=== PATIENT | male | born 1980 | race Caucasian/White ===

== ENCOUNTER → 2017-05-21 | Outpatient (CLI) | payer OTHER ==
[~2017-05-21] MED LIST: CTP1 PO; CTP3 PO; DXY100 PO; EFF50 PO; NAPR-1169 PO; PARO10TA PO
[2017-05-21 14:49] LABS: INFLUENZA B ANTIGEN Neg for Influ B (NEG)
== END ==
LOC: C.LABSPEC 11:17
PROVIDERS: ATTEND Physician Assistant Medical
DX: J06.9 Acute upper respiratory infection, unspecified (principal)

== ENCOUNTER 2017-07-05 01:20 | Emergency (ER) | payer OTHER ==
[~2017-07-05] VITALS: Ht 180.3 cm; Wt 102.0 kg
[2017-07-05 01:22] VITALS: Ht 180.3 cm; Wt 102.0 kg
[2017-07-05] MEDS ORDERED: SODIUM CHLORIDE 0.9% 1000ML 1,000 ML IV STA (01:26)
[2017-07-05] MEDS ORDERED: KETOROLAC TROMETHAMINE 30 MG/ML VIAL IV STA (01:26)
[2017-07-05] MEDS ORDERED: ONDANSETRON INJ 2 MG/ML 2 ML VIAL IV STA (01:26)
[2017-07-05] MEDS: MoRPHine SULFATE 4 MG/ML 1 ML CARP\\VIAL IV PRN ×3 (01:34→02:26)
[2017-07-05 01:43] LABS: BASO % 0.2 %; BASO ABS # 0.02 K/uL (0-0.2); EOS ABS # 0.18 K/uL (0-0.5); HEMATOCRIT 46.4 % (42-52); IG# 0.02 K/uL (0.00-0.02); LYMPH % 28.8 %; MEAN CELL VOLUME 89.1 fL (80-100); MEAN CORPUSCULAR HEMOGLOBIN 30.7 pg (25-34); MEAN CORPUSCULAR HGB CONC 34.5 g/dl (32-36); MEAN PLATELET VOLUME 9.1 fL (7.4-10.4); MONO % 8.4 %; MONO ABS # 0.76 K/uL (0.11-0.59); NEUT % 60.4 %; NEUT ABS # 5.44 K/uL (1.4-6.5); PLATELET COUNT 289 K/uL (130-400); RED CELL DISTRIBUTION WIDTH CV 12.6 % (11.5-14.5); RED CELL DISTRIBUTION WIDTH SD 40.9 fL (36.4-46.3); WHITE BLOOD COUNT 9.02 K/uL (4.8-10.8)
[2017-07-05] MEDS ORDERED: RANI150T81 PO (01:49)
[2017-07-05] MEDS ORDERED: BUPR100T5 PO (01:49)
[2017-07-05] MEDS ORDERED: DIPH25CA5 PO (01:49)
[2017-07-05] MEDS ORDERED: CTP/1 PO (01:49)
[2017-07-05] MEDS ORDERED: SERT50TA PO (01:49)
[2017-07-05] MEDS ORDERED: DIPH50TA10 PO (01:53)
[2017-07-05 02:04] LABS: ALBUMIN 3.9 gm/dl (3.4-5.0); CALCIUM 9.2 mg/dl (8.5-10.1); CREATININE 1.16 mg/dl (0.60-1.40); POTASSIUM 3.6 mmol/L (3.5-5.1)
[2017-07-05] MEDS ORDERED: OXYCODONE IR HOME PACK PO ONE (02:15)
[2017-07-05] MEDS ORDERED: ONDANSETRON HOME PACK 4MG OD TAB PO ONE (02:15)
--- NOTE | 2017-07-05 02:20 | EMERGENCY ROOM VISIT NOTE ---
History Report prepared by Angela: Lynda Marley Under the Supervision of: Dr. Cuba Becerra D.O. First contact with patient: 01:24 Chief Complaint: ABDOMINAL PAIN Stated Complaint: ABD PAIN History of Present Illness The patient is a 36 year old male who presents to the Emergency Room with complaints of persistent right flank pain starting around 0 today. The pain wraps around to his right lower abdomen. The pain started suddenly. He has never had this pain before. He has not noticed any hematuria. He denies any chest pain or testicular pain. He denies any alcohol use or smoking. He has had a cholecystectomy and appendectomy. He denies any history of kidney stone. Source of History: patient Onset: 2229 Position: other (right flank) Symptom Intensity: 910 Quality: other (pain) Timing: other (persistent) Associated Symptoms: No chest pain, No urinary symptoms Review of Systems See HPI for pertinent positives & negatives. A total of 10 systems reviewed and were otherwise negative. Past Medical & Surgical Surgical Problems: (1) S/P appendectomy (2) S/P cholecystectomy Family History No pertinent family history stated. Social History Smoking Status: Never Smoker Alcohol Use: none Housing Status: other (skilled nursing) Current/Historical Medications Scheduled Bupropion Hcl (Wellbutrin Sr), 100 MG PO QAM Clonidine Hcl (Catapres), 0.2 MG PO QPM Diphenhydramine Hcl (Benadryl), 25 MG PO QPM Diphenhydramine Hcl (Sleep) (Diphenhydramine Hcl), 50 MG PO QPM Ranitidine HCl (Zantac), 150 MG PO BID Sertraline (Zoloft), 50 MG PO QAM Allergies Coded Allergies: Butorphanol (Verified Allergy, Severe, HIVES, 07/05/17) Ketorolac Tromethamine (Verified Allergy, Severe, HIVES, 07/05/17) Metoclopramide (Verified Allergy, Intermediate, INCREASED ANXIETY, 07/05/17 ) Physical Exam Vital Signs Date Time Temp Pulse Resp B/P (MAP) Pulse Ox O2 Delivery O2 Flow Rate FiO2 07/05/17 02:27 36.7 85 22 132/90 96 07/05/17 02:06 85 22 132/90 96 Room Air 07/05/17 01:22 36.7 104 26 163/90 98 Room Air Physical Exam GENERAL: Patient is awake, alert, very anxious appearing, appears to be in significant pain. EYES: The conjunctivae are clear. The pupils are round and reactive. EARS, NOSE, MOUTH AND THROAT: The nose is without any evidence of any deformity. Mucous membranes are moist tongue is midline NECK: The neck is nontender and supple. RESPIRATORY: Normal respiratory effort is noted there is no evidence of wheezing rhonchi or rales CARDIOVASCULAR: Regular rate and rhythm noted there no murmurs rubs or gallops normal S1 normal S2 GASTROINTESTINAL: The abdomen is mildly distended, but soft. No guarding or rigidity was appreciated. BACK: Right CVA tenderness. MUSCULOSKELETAL/EXTREMITIES: There is no evidence of gross deformity full range of motion is noted in the hips and shoulders SKIN: There is no obvious evidence of any rash. There are no petechiae, pallor or cyanosis noted. NEUROLOGIC: Patient is awake alert and oriented x3 Medical Decision & Procedures ER Provider Diagnostic Interpretation: Radiology results as stated below per my review and [facility] radiologist interpretation: CT Abdomen & Pelvis without contrast: Punctate stones in the right UVJ causing mild right hydroureter. Laboratory Results 07/05/17 01:25 Red Blood Count 5.21, Mean Corpuscular Volume 89.1, Mean Corpuscular Hemoglobin 30.7, Mean Corpuscular Hemoglobin Concent 34.5, Mean Platelet Volume 9.1, Neutrophils (%) (Auto) 60.4, Lymphocytes (%) (Auto) 28.8, Monocytes (%) (Auto) 8.4, Eosinophils (%) (Auto) 2.0, Basophils (%) (Auto) 0.2, Neutrophils # (Auto) 5.44, Lymphocytes # (Auto) 2.60, Monocytes # (Auto) 0.76, Eosinophils # (Auto) 0.18, Basophils # (Auto) 0.02 07/05/17 01:25 Test 07/05/17 01:25 White Blood Count 9.02 K/uL (4.8-10.8) Red Blood Count 5.21 M/uL (4.7-6.1) Hemoglobin 16.0 g/dL (14.0-18.0) Hematocrit 46.4 % (42-52) Mean Corpuscular Volume 89.1 fL (80-100) Mean Corpuscular Hemoglobin 30.7 pg (25-34) Mean Corpuscular Hemoglobin Concent 34.5 g/dl (32-36) Platelet Count 289 K/uL (130-400) Mean Platelet Volume 9.1 fL (7.4-10.4) Neutrophils (%) (Auto) 60.4 % Lymphocytes (%) (Auto) 28.8 % Monocytes (%) (Auto) 8.4 % Eosinophils (%) (Auto) 2.0 % Basophils (%) (Auto) 0.2 % Neutrophils # (Auto) 5.44 K/uL (1.4-6.5) Lymphocytes # (Auto) 2.60 K/uL (1.2-3.4) Monocytes # (Auto) 0.76 K/uL (0.11-0.59) Eosinophils # (Auto) 0.18 K/uL (0-0.5) Basophils # (Auto) 0.02 K/uL (0-0.2) RDW Standard Deviation 40.9 fL (36.4-46.3) RDW Coefficient of Variation 12.6 % (11.5-14.5) Immature Granulocyte % (Auto) 0.2 % Immature Granulocyte # (Auto) 0.02 K/uL (0.00-0.02) Anion Gap 8.0 mmol/L (3-11) Est Creatinine Clear Calc Drug Dose 109.1 ml/min Estimated GFR () 94.7 Estimated GFR (Non- 81.7 BUN/Creatinine Ratio 8.7 (10-20) Calcium Level 9.2 mg/dl (8.5-10.1) Total Bilirubin 0.6 mg/dl (0.2-1) Direct Bilirubin 0.2 mg/dl (0-0.2) Aspartate Amino Transf (AST/SGOT) 23 U/L (15-37) Alanine Aminotransferase (ALT/SGPT) 49 U/L (12-78) Alkaline Phosphatase 85 U/L (45-117) Total Protein 8.0 gm/dl (6.4-8.2) Albumin 3.9 gm/dl (3.4-5.0) Lipase 206 U/L (73-393) Laboratory results per my review. Medications Administered Medications (Trade) Dose Ordered Sig/Tita Route Start Time Stop Time Status Last Admin Dose Admin Sodium Chloride 1,000 ml @ 999 mls/hr Q1H1M STAT IV 07/05/17 01:26 07/05/17 02:26 DC 07/05/17 01:38 999 MLS/HR Ondansetron HCl (Zofran Inj) 4 mg NOW STAT IV 07/05/17 01:26 07/05/17 01:27 DC 07/05/17 01:34 4 MG Morphine Sulfate (MoRPHine SULFATE INJ) 4 mg Q15M PRN IV 07/05/17 01:30 07/19/17 01:29 07/05/17 02:26 4 MG Oxycodone HCl (Roxicodone Immediate Rel 5MG Home Pack) 1 homepack UD ONCE PO 07/05/17 02:15 07/05/17 02:16 DC 07/05/17 02:15 1 HOMEPACK Ondansetron HCl (ZOFRAN ODT 4MG Home Pack) 1 homepack UD ONCE PO 07/05/17 02:15 07/05/17 02:16 DC 07/05/17 02:15 1 HOMEPACK ED Course 0125: The patient was evaluated in room B7. A complete history and physical examination were performed. 0126: Zofran Inj 4 mg IV, NSS 1000 ml @ 999 mls/hr IV. 0130: Morphine Sulfate 4 mg IV. 0214: Upon reevaluation, the patient is resting comfortably. I discussed the results and treatment plan with him. He verbalized agreement of the treatment plan. He was discharged home. 0215: Zofran Odt 4 mg 1 homepack, Oxycodone HCl 1 homepack. Medical Decision Prior records/ancillary studies reviewed. Triage Nursing notes reviewed. Differential diagnosis: Etiologies such as renal colic, appendicitis, diverticulitis, mesenteric ischemia, aortic pathology, infections, inflammatory bowel disease, PUD, biliary pathology, UTI, as well as others were entertained. The patient is a 36-year-old male who presented to the emergency department for an evaluation of right flank pain. The patient had an acute onset of right flank pain. His history and physical exam appear to be consistent with renal colic. He was treated with IV fluids IV pain medicine and IV anti-medics. On subsequent reevaluation he was feeling much better. The patient did not have a fever. His white blood cell count was normal. He had a CT which revealed a distal right ureteral calculus which I feel explains the patient's symptoms. He was feeling much better on subsequent reevaluation. I feel the patient can follow-up as an outpatient. He was given pain medication and antiemetics to go back with him. He was encouraged to follow-up with the skilled nursing physician but return to the emergency department immediately if symptoms change worsen or the need arises. Medication Reconcilliation Current Medication List: was personally reviewed by me Blood Pressure Screening Patient's blood pressure: Elevated blood pressure Blood pressure disposition: Elevated BP felt to be situational Impression Primary Impression: Right flank pain Additional Impression: Kidney stone Scribe Attestation The scribe's documentation has been prepared under my direction and personally reviewed by me in its entirety. I confirm that the note above accurately reflects all work, treatment, procedures, and medical decision making performed by me. Departure Information Dispostion Home / Self-Care Referrals [facility] (PCP) Forms Call Back Authorization, HOME CARE DOCUMENTATION FORM, IMPORTANT VISIT INFORMATION Patient Instructions Kidney Stones, Kidney Stones Expectant Therapy, My [facility] Additional Instructions Continue all medications as prescribed. Drink plenty clear liquids. Follow-up with the physician at [facility]. Problem Qualifiers
[2017-07-05 02:27] VITALS: BP 132/90; PULSE 85; TEMP 36.7; O2SAT 96
--- NOTE | 2017-07-05 05:43 | DIAGNOSTIC IMAGING REPORT ---
ABD/PELVIS NO IV OR ORAL CONT CLINICAL HISTORY: 36 years-old Male presenting with right flank pain, hematuria, no history of kidney stones. TECHNIQUE: Multidetector CT of the abdomen and pelvis was performed without the use of intravenous contrast. IV contrast: None. A dose lowering technique was used consistent with the principles of ALARA (as low as reasonably achievable). COMPARISON: 07/14/2011. The CT DOSE (mGy.cm): The estimated cumulative dose is 601.27 mGy.cm. 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 Lung bases: Minimal basilar opacities, likely atelectasis. Normal heart size. No pericardial or pleural effusion. Liver: Normal morphology. Normal density. Biliary: No gross biliary ductal dilatation allowing for noncontrast technique. Gallbladder surgically absent. Pancreas: Normal noncontrast appearance. Spleen: Normal noncontrast appearance. Adrenal glands: Normal noncontrast appearance. Kidneys and ureters: Mild right pelvocaliectasis and mild right hydroureter. Obstructing 2 mm calculus at the right ureterovesical junction (series 3 image [id number]). No additional right renal calculus. No left renal calculus. No left hydronephrosis. Left ureter normal. Bladder: Incompletely evaluated secondary to underdistention. Pelvic organs: Prostate and seminal vesicles normal. Bowel: Postsurgical changes of appendectomy. No bowel obstruction. Peritoneal cavity: No free fluid or intraperitoneal gas. Lymph nodes: No gross lymphadenopathy allowing for noncontrast technique. Vasculature: Normal noncontrast appearance. Abdominal wall: Bilateral gynecomastia. Musculoskeletal: Normal. IMPRESSION: 1. Obstructing 2 mm calculus at the right ureterovesical junction with resultant mild right hydroureteronephrosis. No additional renal or ureteral calculus. 2. Postsurgical changes of cholecystectomy and appendectomy. Electronically signed by: Ludwig Meeks M.D. 07/05/2017 5:41 AM Dictated Date/Time: 07/05/2017 5:36 AM
== END 2017-07-05 02:28 | disposition home or self-care (01) ==
LOC: C.EDB 01:21
DX: N20.0 Calculus of kidney (principal); R10.31 Right lower quadrant pain; Z79.899 Other long term (current) drug therapy; Z88.5 Allergy status to narcotic agent; Z88.8 Allergy status to other drugs, medicaments and biological substances